=== PATIENT | male | born 1975 | race African-American/Black ===

== ENCOUNTER 2018-09-29 12:45 | Emergency (ER) | payer MEDICAID ==
[~2018-09-29] VITALS: Ht 185.4 cm; Wt 89.4 kg
[2018-09-29 12:50] VITALS: Ht 185.4 cm; Wt 89.4 kg
[2018-09-29 14:40] LABS: BASOPHIL % 0.8 % (0-2); PLATELET COUNT 140 x10^3mcL (130-400); RED CELL DISTRIBUTION WIDTH 13.5 % (11.5-14.5)
[2018-09-29 14:50] LABS: CALCIUM 9.3 mg/dL (8.5-10.1); CARBON DIOXIDE 25.2 mmol/L (21-32); CHLORIDE SERUM 103 mmol/L (98-107); GFR1 > 60 mL/min; GLUCOSE SERUM 105 mg/dL (74-106); POTASSIUM SERUM 4.3 mmol/L (3.5-5.1); SODIUM SERUM 138 mmol/L (136-145)
[2018-09-29 14:54] LABS: ALBUMIN 3.8 g/dL (3.4-5.0); ALKALINE PHOSPHATASE 63 U/L (46-116); ALT/SGPT 60 U/L (16-63); AST/SGOT 41 U/L (15-37); BILIRUBIN TOTAL 1.2 mg/dL (0.20-1.00); LIPASE 109 IU/L (73-393); TOTAL PROTEIN, SERUM 7.3 g/dL (6.4-8.2)
[2018-09-29 16:19] VITALS: BP 124/87
== END 2018-09-29 16:19 | disposition home or self-care (01) ==
LOC: ED 12:45
PROVIDERS: Emergency Medicine
DX: R10.9 Unspecified abdominal pain (principal); R53.1 Weakness; F17.210 Nicotine dependence, cigarettes, uncomplicated; R42 Dizziness and giddiness; R06.02 Shortness of breath; Z13.89 Encounter for screening for other disorder; Z88.0 Allergy status to penicillin
CPT/HCPCS: 36415; 99406